=== PATIENT | female | born 1950 | race Caucasian/White ===

== ENCOUNTER 2023-09-27 08:53 | Day surgery (SDC) | payer OTHER ==
[2023-09-26 11:41] VITALS: BMI 25.2
[2023-09-27 10:14] VITALS: RESP 18
[2023-09-27] MEDS ORDERED: TETRACAINE 0.5% OPHTH SOLN 2 ML BOTTLE ONE (10:32)
[2023-09-27] MEDS ORDERED: EPINEPHrine/PF 1 MG/1 ML (1:1,000) AMPULE ONE (10:32)
[2023-09-27] MEDS ORDERED: LIDOCAINE 1% P/F 10 MG/ML VIAL ONE (10:32)
[2023-09-27] MEDS ORDERED: BSS (NA/CA/MG/K) BALANCED SALT SOLUTION OPHTH SOLN 15 ML BOTTLE ONE (10:33)
[2023-09-27] MEDS ORDERED: NEO/POLYMYX B SULF/DEXAMETH OPHTHALMIC 5ML BOTTLE ONE (10:33)
[2023-09-27] MEDS ORDERED: CARBACHOL 0.01% INTRA-OCULAR 1.5 ML VIAL ONE (10:33)
[2023-09-27] MEDS: CYCLOPENTOLATE 2% OPHTH SOLN 2 ML BOTTLE ONE (10:40)
[2023-09-27] MEDS: PHENYLEPHRINE 2.5% OPTHALMIC DROP 2ML BOTTLE ONE (10:40)
[2023-09-27] MEDS: CIPROFLOXACIN 0.3% EYE DROPS 5 ML BOTTLE ONE (10:40)
[2023-09-27] MEDS: TROPICAMIDE 1% OPHTH SOLN 15 ML BOTTLE ONE (10:40)
[2023-09-27] MEDS ORDERED: MIDAZOLAM HCL 2 MG/2 ML SINGLE DOSE VIAL ONE (10:50)
[2023-09-27 12:35] VITALS: TEMP 97
[2023-09-27 13:39] VITALS: BP 132/60; PULSE 69
== END 2023-09-27 13:33 | disposition home or self-care (01) ==
LOC: FASU 08:53
PROVIDERS: ATTEND Ophthalmology
PROC: 08RJ3JZ Replacement of Right Lens with Synthetic Substitute, Percutaneous Approach (ICD-10-PCS; principal; 2023-09-27 11:52)
DX: H26.8 Other specified cataract (principal)
CPT/HCPCS: 66984; V2632

== ENCOUNTER 2023-11-29 08:46 | Day surgery (SDC) | payer OTHER ==
[2023-11-27 12:06] VITALS: BMI 25.2
[2023-11-29] MEDS: CIPROFLOXACIN 0.3% EYE DROPS 5 ML BOTTLE ONE (09:15)
[2023-11-29] MEDS: CYCLOPENTOLATE 2% OPHTH SOLN 2 ML BOTTLE ONE (09:15)
[2023-11-29] MEDS: TROPICAMIDE 1% OPHTH SOLN 15 ML BOTTLE ONE (09:15)
[2023-11-29] MEDS: PHENYLEPHRINE 2.5% OPTHALMIC DROP 2ML BOTTLE ONE (09:15)
[2023-11-29] MEDS ORDERED: TETRACAINE 0.5% OPHTH SOLN 2 ML BOTTLE ONE (09:30)
[2023-11-29] MEDS ORDERED: LIDOCAINE 1% P/F 10 MG/ML VIAL ONE (09:30)
[2023-11-29] MEDS ORDERED: NEO/POLYMYX B SULF/DEXAMETH OPHTHALMIC 5ML BOTTLE ONE (09:30)
[2023-11-29] MEDS ORDERED: CARBACHOL 0.01% INTRA-OCULAR 1.5 ML VIAL ONE (09:30)
[2023-11-29] MEDS ORDERED: BSS (NA/CA/MG/K) BALANCED SALT SOLUTION OPHTH SOLN 15 ML BOTTLE ONE (09:30)
[2023-11-29] MEDS ORDERED: MIDAZOLAM HCL 2 MG/2 ML SINGLE DOSE VIAL ONE (11:00)
[2023-11-29 12:20] VITALS: TEMP 97.8
[2023-11-29 12:26] VITALS: BP 124/64; PULSE 73; RESP 19
== END 2023-11-29 12:10 | disposition home or self-care (01) ==
LOC: FASU 08:46
PROVIDERS: ATTEND Ophthalmology
PROC: 08RK3JZ Replacement of Left Lens with Synthetic Substitute, Percutaneous Approach (ICD-10-PCS; principal; 2023-11-29 11:06)
DX: H26.8 Other specified cataract (principal)
CPT/HCPCS: 66984; V2632